=== PATIENT | female | born 1950 | race Caucasian/White ===

== ENCOUNTER → 2024-01-11 | Outpatient (CLI) | payer MEDICARE ==
[~2024-01-11] MED LIST: CARV12.5; CEFD1CAP9; ELIQ5TAB; FLAS1KIT2; FOLI1TAB11 PO; FURO20TA2; LIDOCAINE 1% MDV 20ML VIAL As Ordered ONE; METF-838; MIDAZOLAM INJ 2MG/2ML VIAL As Ordered ONE; NS 1,000 ML IV SCH; OMEP-173; ONDA-284; PRED10TA2; ROSU5TAB40; SPIR-10; TRAM50TA2 PO; VALS40TA9; fentaNYL 100 MCG/2 ML INJECTION As Ordered ONE
[2024-01-11 12:00] VITALS: TEMP 98.1
[2024-01-11 14:00] VITALS: BP 122/74; O2SAT 99
[2024-01-11] MEDS: traMADol 50 MG TAB PO ONE (14:44)
== END ==
LOC: M IRPRO 11:50
PROVIDERS: ATTEND Internal Medicine Hematology & Oncology
DX: C22.9 Malignant neoplasm of liver, not specified as primary or secondary (principal)
CPT/HCPCS: 47000; 76942; 88305; 99152; J2250; J3010

== ENCOUNTER 2024-01-17 18:05 | Inpatient (IN) | payer MEDICARE ==
[~2024-01-17] VITALS: Ht 152.4 cm; Wt 71.2 kg
[2024-01-17] VITALS (17 sets, daily range): BP systolic 87–118; BP diastolic 53–81; TEMP 97.9–98.3; O2SAT 82–99
[~2024-01-17 18:05] MED LIST changes: +AMOX875T2 PO; -CARV12.5; +CARV12.5 PO; -FURO20TA2; +FURO20TA2 PO; -LIDOCAINE 1% MDV 20ML VIAL As Ordered ONE; -METF-838; +METF-838 PO; -MIDAZOLAM INJ 2MG/2ML VIAL As Ordered ONE; -NS 1,000 ML IV SCH; -OMEP-173; +OMEP-173 PO; -ONDA-284; +ONDA-284 PO; -ROSU5TAB40; +ROSU5TAB40 PO; -SPIR-10; +SPIR-10 PO; -VALS40TA9; +VALS40TA9 PO; -fentaNYL 100 MCG/2 ML INJECTION As Ordered ONE
[2024-01-17] MEDS ORDERED: GLUCAGON INJ 1MG VIAL SC PRN (20:30)
[2024-01-17] MEDS ORDERED: GLUCOSE 4 GM CHEW PO PRN (20:30)
[2024-01-17] MEDS ORDERED: DEXTROSE 50% 50ML SYRINGE IV PRN (20:30)
[2024-01-17 20:40] LABS: BASO # 0.3 10^3/uL (0.0-0.2); BASO % 1.1 % (0.0-1.0); EOS # 0.1 10^3/uL (0.0-0.5); EOS % 0.5 % (0.0-3.0); HEMATOCRIT 37.6 % (36.0-47.0); HEMOGLOBIN 11.4 g/dl (12.0-15.5); LYMPH # 1.9 10^3/uL (1.5-5.0); LYMPH % 6.3 % (24.0-44.0); MEAN CORPUSCULAR HGB CONC 30.3 g/dl (32.0-36.5); MEAN CORPUSCULAR VOLUME 112.2 fl (80.0-96.0); MONO # 2.1 10^3/uL (0.0-0.8); MONO % 6.8 % (2.0-8.0); NEUTROPHILS # 25.2 10^3/uL (1.5-8.5); NEUTROPHILS % 82.8 % (36.0-66.0); PLATELET COUNT, AUTOMATED 183 10^3/uL (150-450); RED BLOOD COUNT 3.35 10^6/uL (4.00-5.40)
[2024-01-17] MEDS ORDERED: APIXABAN 2.5 MG TAB (ELIQUIS) PO SCH (21:00)
[2024-01-17] MEDS ORDERED: FUROSEMIDE injection 250 MG in D5W 225 ML IV SCH (21:00)
[2024-01-17 21:02] LABS: ALBUMIN 2.3 G/DL (3.2-5.2); ALKALINE PHOSPHATASE 125 U/L (46-116); ALT/SGPT 12 U/L (7.0-40); AST/SGOT 22 U/L (<34); BILIRUBIN,TOTAL 1.1 MG/DL (0.3-1.2); BLOOD UREA NITROGEN 27 MG/DL (9-23); CALCIUM LEVEL 8.7 MG/DL (8.3-10.6); CARBON DIOXIDE LEVEL 29 MMOL/L (20-31); CHLORIDE LEVEL 104 MMOL/L (98-107); CREATININE FOR GFR 0.69 MG/DL (0.55-1.30); GLOMERULAR FILTRATION RATE > 60.0 (>39); GLUCOSE, FASTING 242 MG/DL (74-106); HEMOGLOBIN A1c 8.9 % (4.0-6.0); POTASSIUM SERUM 4.5 MMOL/L (3.5-5.1); SODIUM LEVEL 135 MMOL/L (136-145); TOTAL PROTEIN 6.4 G/DL (5.7-8.2)
[2024-01-17 21:03] LABS: WHITE BLOOD COUNT 30.4 10^3/uL (4.0-10.0)
[2024-01-17 21:10] LABS: INR 1.26; PARTIAL THROMBOPLASTIN TIME 29.7 SECONDS (24.8-34.2); PROTHROMBIN TIME 15.4 SECONDS (12.5-14.5)
[2024-01-17] MEDS: PIPERACILLIN/TAZOBACTAM SOD 3.375 GM in D5W MINI-BAG PLUS 50 ML IV SCH (22:43)
[2024-01-17] MEDS: FUROSEMIDE injection 250 MG in D5W 225 ML IV SCH (22:43)
[2024-01-17] MEDS: AMIODARONE HCL 150 MG in IV 1 EA IV ONE (22:43)
[2024-01-17] MEDS: AMIODARONE HCL 360 MG in IV 1 EA IV SCH (22:53)
[2024-01-17] MEDS: INSULIN LISPRO (NovoLOG) PER UNIT SC SCH (22:53)
[2024-01-17 22:55] LABS: MAGNESIUM LEVEL 1.6 MG/DL (1.8-2.4)
[2024-01-17 23:09] LABS: PROCALCITONIN 0.15 ng/ml
[2024-01-18] VITALS (61 sets, daily range): BP systolic 71–145; BP diastolic 44–86; TEMP 96–98.1; O2SAT 56–99
[2024-01-18] MEDS: MAG SULF 1GM/100ML (MAG RUN) 1 GM in IV 1 EA IV SCH (00:12)
[2024-01-18] MEDS: traMADol 50 MG TAB PO PRN (00:12)
[2024-01-18] MEDS: LEVEMIR (INSULIN DETEMIR) 1 UNITS/0.01ML SC SCH (01:32)
[2024-01-18] MEDS ORDERED: INSULIN LISPRO (NovoLOG) PER UNIT SC SCH ×3 (02:00→21:00)
[2024-01-18] MEDS: NOREPINEPHRINE 4MG IN D5 250ML 4 MG in IV 1 EA IV SCH (02:07)
[2024-01-18] MEDS ORDERED: ELIQ2.5T PO (02:43)
[2024-01-18] MEDS ORDERED: FOLI1TAB11 PO (02:56)
[2024-01-18] MEDS ORDERED: TRAM50TA2 PO (03:06)
[2024-01-18] MEDS ORDERED: ALEN70TA82 PO (03:11)
[2024-01-18] MEDS ORDERED: ALPH600C PO (03:16)
[2024-01-18] MEDS ORDERED: VENTAER INH (03:16)
[2024-01-18] MEDS ORDERED: HOME MED LIST COMPLETE! XX SCH (03:20)
[2024-01-18] MEDS: INSULIN LISPRO (NovoLOG) PER UNIT SC SCH (04:01)
[2024-01-18] MEDS: AMIODARONE HCL 360 MG in IV 1 EA IV SCH (04:52)
[2024-01-18 05:27] LABS: HEMATOCRIT 35.1 % (36.0-47.0); HEMOGLOBIN 10.9 g/dl (12.0-15.5); MEAN CORPUSCULAR HGB CONC 31.1 g/dl (32.0-36.5); MEAN CORPUSCULAR VOLUME 109.3 fl (80.0-96.0); PLATELET COUNT, AUTOMATED 234 10^3/uL (150-450); RED BLOOD COUNT 3.21 10^6/uL (4.00-5.40)
[2024-01-18 05:28] LABS: WHITE BLOOD COUNT 38.8 10^3/uL (4.0-10.0)
[2024-01-18 05:53] LABS: ALBUMIN 2.2 G/DL (3.2-5.2); ALKALINE PHOSPHATASE 119 U/L (46-116); ALT/SGPT 10 U/L (7.0-40); AST/SGOT 24 U/L (<34); BILIRUBIN,TOTAL 1.2 MG/DL (0.3-1.2); BLOOD UREA NITROGEN 28 MG/DL (9-23); CALCIUM LEVEL 8.2 MG/DL (8.3-10.6); CARBON DIOXIDE LEVEL 25 MMOL/L (20-31); CHLORIDE LEVEL 103 MMOL/L (98-107); CREATININE FOR GFR 0.78 MG/DL (0.55-1.30); GLOMERULAR FILTRATION RATE > 60.0 (>39); GLUCOSE, FASTING 209 MG/DL (74-106); POTASSIUM SERUM 3.8 MMOL/L (3.5-5.1); SODIUM LEVEL 134 MMOL/L (136-145); TOTAL PROTEIN 6.1 G/DL (5.7-8.2)
[2024-01-18] MEDS ORDERED: FUROSEMIDE injection 250 MG in D5W 225 ML IV SCH ×3 (06:00→11:05)
[2024-01-18] MEDS: FUROSEMIDE injection 250 MG in D5W 225 ML IV SCH (06:05)
[2024-01-18] MEDS: PANTOPRAZOLE 40MG TAB (PROTONIX) PO SCH (09:53)
[2024-01-18] MEDS: ENOXAPARIN 80MG/0.8ML SYRINGE (J1650 PER 10MG) SC SCH (09:54)
[2024-01-18] MEDS: DOBUTamine HCL 500,000 MCG in IV 1 EA IV SCH (11:40)
[2024-01-18] MEDS ORDERED: DEXTROSE 50% 50ML SYRINGE IV PRN (16:15)
[2024-01-18] MEDS ORDERED: GLUCAGON INJ 1MG VIAL SC PRN (16:15)
[2024-01-18] MEDS ORDERED: GLUCOSE 4 GM CHEW PO PRN (16:15)
[2024-01-18] MEDS: PIPERACILLIN/TAZOBACTAM SOD 4.5 GM in D5W MINI-BAG PLUS 50 ML IV SCH (16:45)
[2024-01-18] MEDS: DIGOXIN INJ 0.5 MG/2 ML AMP IV SCH (16:46)
== END 2024-01-18 18:54 | disposition short-term general hospital (02) | DRG 871 ==
LOC: M ICU 19:17
PROVIDERS: ADMIT Internal Medicine Pulmonary Disease; ATTEND Internal Medicine Pulmonary Disease
PROC: 04HK33Z Insertion of Infusion Device into Right Femoral Artery, Percutaneous Approach (ICD-10-PCS; principal; 2024-01-18)
DX: A41.9 Sepsis, unspecified organism (principal); R57.0 Cardiogenic shock; R65.21 Severe sepsis with septic shock; I33.0 Acute and subacute infective endocarditis; C25.9 Malignant neoplasm of pancreas, unspecified; C79.51 Secondary malignant neoplasm of bone; C78.7 Secondary malignant neoplasm of liver and intrahepatic bile duct; J96.11 Chronic respiratory failure with hypoxia; E87.20 Acidosis, unspecified; I50.20 Unspecified systolic (congestive) heart failure; I48.91 Unspecified atrial fibrillation; E11.9 Type 2 diabetes mellitus without complications; M06.9 Rheumatoid arthritis, unspecified; J44.9 Chronic obstructive pulmonary disease, unspecified; D69.6 Thrombocytopenia, unspecified; E78.5 Hyperlipidemia, unspecified; M81.0 Age-related osteoporosis without current pathological fracture; Z99.81 Dependence on supplemental oxygen; Z95.810 Presence of automatic (implantable) cardiac defibrillator; D75.1 Secondary polycythemia; Z79.01 Long term (current) use of anticoagulants; Z88.8 Allergy status to other drugs, medicaments and biological substances; Z79.899 Other long term (current) drug therapy; Z87.891 Personal history of nicotine dependence

== ENCOUNTER → 2024-02-23 | Outpatient (CLI) | payer MEDICARE ==
[~2024-02-23] VITALS: Ht 152.4 cm; Wt 63.5 kg
[~2024-02-23] MED LIST changes: +ALEN70TA82 PO; +ALPH600C PO; +BASA100I; +ELIQ2.5T PO; +LEVO1TAB38 PO; +LIDOCAINE 1% MDV 20ML VIAL As Ordered ONE; +MIDAZOLAM INJ 2MG/2ML VIAL As Ordered ONE; +MIDO2.5T PO; +PANT40TA29 PO; +SPIR-10; +VENTAER INH; +ceFAZolin 2 GM/D5W 50 ML IV BAG As Ordered ONE; +fentaNYL 100 MCG/2 ML INJECTION As Ordered ONE
[2024-02-23 10:21] VITALS: TEMP 99.1
[2024-02-23] MEDS: NS 1,000 ML IV SCH (11:33)
[2024-02-23] MEDS: ceFAZolin SOD 2 GM in IV 1 EA IV ONE (11:33)
[2024-02-23 13:34] VITALS: BP 109/71; O2SAT 97
== END ==
LOC: M IRPRO 10:11
PROVIDERS: ATTEND Internal Medicine Hematology & Oncology
DX: D45 Polycythemia vera (principal)
CPT/HCPCS: 36561; 99152; 99153; J0690; J1642; J2250; J3010

== ENCOUNTER 2024-03-02 13:17 | Inpatient (IN) | payer MEDICARE ==
[2024-03-02] VITALS (21 sets, daily range): BP systolic 82–130; BP diastolic 49–68; TEMP 97.1–97.4; O2SAT 98–100
[~2024-03-02] VITALS: Ht 154.9 cm; Wt 70.1 kg
[~2024-03-02 13:17] MED LIST changes: -BASA100I; +BASA100I INJ; -LIDOCAINE 1% MDV 20ML VIAL As Ordered ONE; +METO37.5 PO; -MIDAZOLAM INJ 2MG/2ML VIAL As Ordered ONE; +PERCOCET PO; +PROC10TA5 PO; -SPIR-10; -ceFAZolin 2 GM/D5W 50 ML IV BAG As Ordered ONE; -fentaNYL 100 MCG/2 ML INJECTION As Ordered ONE
[2024-03-02] MEDS ORDERED: SODIUM CHLORIDE 0.9% INJ 10 ML SYR IV PRN (13:30)
[2024-03-02] MEDS ORDERED: NS 1,000 ML IV ONE (13:35)
[2024-03-02] MEDS: NS 500 ML IV ONE (13:45)
[2024-03-02 14:04] LABS: BASO # 0.5 10^3/uL (0.0-0.2); BASO % 0.9 % (0.0-1.0); EOS # 0.2 10^3/uL (0.0-0.5); EOS % 0.4 % (0.0-3.0); HEMOGLOBIN 10.3 g/dl (12.0-15.5); LYMPH # 1.6 10^3/uL (1.5-5.0); LYMPH % 2.7 % (24.0-44.0); MEAN CORPUSCULAR HEMOGLOBIN 30.2 pg (27.0-33.0); MEAN CORPUSCULAR HGB CONC 28.6 g/dl (32.0-36.5); MEAN CORPUSCULAR VOLUME 105.6 fl (80.0-96.0); MONO % 3.3 % (2.0-8.0); NEUTROPHILS # 53.7 10^3/uL (1.5-8.5); PLATELET COUNT, AUTOMATED 220 10^3/uL (150-450); RED BLOOD COUNT 3.41 10^6/uL (4.00-5.40)
[2024-03-02 14:08] LABS: ABG BASE EXCESS 0.6 (-2.0-2.0); ABG HCO3 24.5 MMOL/L (22.0-26.0); ABG O2 SATURATION 89.9 % (95.0-99.0); ABG PARTIAL PRESSURE CO2 36.8 mmHg (35.0-45.0); ABG PARTIAL PRESSURE O2 59.8 mmHg (75.0-100.0); ABG STANDARD HCO3 24.8 MMOL/L. (22.0-26.0); ABG TOTAL CO2 25.6 MMOL/L (23.0-31.0); ABG pH (ARTERIAL) 7.441 UNITS (7.350-7.450)
[2024-03-02 14:10] LABS: WHITE BLOOD COUNT 60.2 10^3/uL (4.0-10.0)
[2024-03-02 14:23] LABS: CK-MB VALUE MASS < 1.0 NG/ML (<3.6); INR 3.39; PARTIAL THROMBOPLASTIN TIME 47.8 SECONDS (24.8-34.2)
[2024-03-02 14:25] LABS: CPK CREATINE PHOSPHOKINASE 38 U/L (34-145); MB/CK RELATIVE INDEX 2.63 (< OR =4)
[2024-03-02 14:26] LABS: THYROID STIMULATING HORMONE 26.399 uIU/ML (0.55-4.78)
[2024-03-02 14:28] LABS: FREE T4 0.87 NG/DL (0.89-1.76)
[2024-03-02] MEDS: PIPERACILLIN/TAZOBACTAM SOD 4.5 GM in DEXTROSE 5% (D5W) ADV/MINI-BAG 50 ML IV ONE (14:34)
[2024-03-02] MEDS: PANTOPRAZOLE 40MG VIAL IV ONE (14:34)
[2024-03-02 14:40] LABS: ALBUMIN 2.1 G/DL (3.2-5.2); ALKALINE PHOSPHATASE 180 U/L (46-116); ALT/SGPT 13 U/L (7.0-40); AST/SGOT 51 U/L (<34); BILIRUBIN,DIRECT 0.9 MG/DL (<0.4); BILIRUBIN,TOTAL 1.6 MG/DL (0.3-1.2); BLOOD UREA NITROGEN 37 MG/DL (9-23); CALCIUM LEVEL 8.2 MG/DL (8.3-10.6); CARBON DIOXIDE LEVEL 28 MMOL/L (20-31); CHLORIDE LEVEL 99 MMOL/L (98-107); CREATININE FOR GFR 1.27 MG/DL (0.55-1.30); GLOMERULAR FILTRATION RATE 44.2 (>39); GLUCOSE, FASTING 227 MG/DL (74-106); POTASSIUM SERUM 4.4 MMOL/L (3.5-5.1); SODIUM LEVEL 135 MMOL/L (136-145); TOTAL PROTEIN 6.3 G/DL (5.7-8.2)
[2024-03-02] MEDS ORDERED: AMIODARONE 150MG/3ML VIAL IVP STA (16:38)
[2024-03-02] MEDS: AMIODARONE HCL 150 MG in IV 1 EA IV ONE (17:13)
[2024-03-02] MEDS: AMIODARONE HCL 360 MG in IV 1 EA IV SCH ×2 (17:37→23:17)
[2024-03-02] MEDS ORDERED: FURO40TA2 PO (17:58)
[2024-03-02] MEDS ORDERED: METO50TA7 PO (17:58)
[2024-03-02] MEDS ORDERED: ELIQ5TAB PO (17:58)
[2024-03-02] MEDS ORDERED: HOME MED LIST COMPLETE! XX SCH (18:00)
[2024-03-02] MEDS: VASOPRESSIN IN 0.9 % NACL 20 UNIT in IV 1 EA IV SCH (18:58)
[2024-03-02] MEDS ORDERED: PILL CUTTER 1 EACH XX PRN (19:25)
[2024-03-02] MEDS: DOCUSATE SODIUM 100MG CAPSULE PO SCH (20:20)
[2024-03-02] MEDS: PIPERACILLIN/TAZOBACTAM SOD 3.375 GM in DEXTROSE 5% (D5W) ADV/MINI-BAG 50 ML IV SCH (22:24)
[2024-03-02] MEDS: ROSUVASTATIN 10 MG TAB (CRESTOR) PO SCH (22:24)
[2024-03-03] VITALS (97 sets, daily range): BP systolic 74–118; BP diastolic 46–70; TEMP 97.1–98; O2SAT 90–100
[2024-03-03] MEDS: PERCOCET 5MG/325MG TAB PO PRN (02:35)
[2024-03-03 04:56] LABS: HEMATOCRIT 33.2 % (36.0-47.0); HEMOGLOBIN 9.7 g/dl (12.0-15.5); MEAN CORPUSCULAR HGB CONC 29.2 g/dl (32.0-36.5); MEAN CORPUSCULAR VOLUME 106.1 fl (80.0-96.0); PLATELET COUNT, AUTOMATED 200 10^3/uL (150-450); RED BLOOD COUNT 3.13 10^6/uL (4.00-5.40)
[2024-03-03 05:34] LABS: MONOCYTES 6 % (0-5); MYELOCYTES 1 % (0-0); NEUTROPHILS 93 % (28-66)
[2024-03-03 05:35] LABS: PLATELET ESTIMATE NORMAL (NORMAL); POIKILOCYTOSIS 1+
[2024-03-03 05:36] LABS: ANISOCYTOSIS 2+
[2024-03-03 05:52] LABS: ALBUMIN 2.1 G/DL (3.2-5.2); BILIRUBIN,TOTAL 1.7 MG/DL (0.3-1.2); CALCIUM LEVEL 7.9 MG/DL (8.3-10.6); CREATININE FOR GFR 1.68 MG/DL (0.55-1.30); MAGNESIUM LEVEL 1.5 MG/DL (1.8-2.4); PHOSPHORUS LEVEL 5.9 MG/DL (2.4-5.1); POTASSIUM SERUM 4.6 MMOL/L (3.5-5.1); TOTAL PROTEIN 6.1 G/DL (5.7-8.2)
[2024-03-03] MEDS: MAG SULF 1GM/100ML (MAG RUN) 1 GM in IV 1 EA IV SCH (06:13)
[2024-03-03] MEDS ORDERED: GLUCAGON INJ 1MG VIAL SC PRN (07:30)
[2024-03-03] MEDS ORDERED: DEXTROSE 50% 50ML SYRINGE IV PRN (07:30)
[2024-03-03] MEDS ORDERED: GLUCOSE 4 GM CHEW PO PRN (07:30)
[2024-03-03] MEDS: INSULIN LISPRO (NovoLOG) PER UNIT SC SCH ×2 (08:19→20:26)
[2024-03-03] MEDS: FUROSEMIDE 100MG/10ML VIAL IV ONE (08:19)
[2024-03-03] MEDS: DOBUTamine HCL 500,000 MCG in IV 1 EA IV SCH (08:23)
[2024-03-03] MEDS: LEVOTHYROXINE 100MCG (0.1MG) 5ML SDV PF (SOLUTION FORM) IV SCH (08:26)
[2024-03-03] MEDS: PANTOPRAZOLE 40MG VIAL IV SCH (08:26)
[2024-03-03] MEDS: FOLIC ACID 1MG TAB PO SCH (08:29)
[2024-03-03] MEDS: HYDROCORTISONE 100MG/2ML VIAL IV ONE (08:30)
[2024-03-03] MEDS: VASOPRESSIN IN 0.9 % NACL 20 UNIT in IV 1 EA IV SCH (08:52)
[2024-03-03] MEDS: MAG SULF 1GM/100ML (MAG RUN) 1 GM in IV 1 EA IV ONE (12:28)
[2024-03-03] MEDS ORDERED: PERCOCET PO (14:11)
[2024-03-03] MEDS: HEPARIN SOD (PORCINE) 5000UNITS/ML 1ML VIAL/SYRINGE SQ SCH (14:26)
[2024-03-03] MEDS: metOLazone 5 MG TAB PO ONE (16:25)
[2024-03-03] MEDS: FUROSEMIDE injection 100 MG, VIAL 2 BAG 13MM ADAPTER 1 EACH in D5W 100 ML IV SCH (17:14)
[2024-03-03] MEDS: FUROSEMIDE 20MG/2ML VIAL IV ONE (18:24)
[2024-03-03] MEDS: LEVEMIR (INSULIN DETEMIR) 1 UNITS/0.01ML SC SCH (21:29)
[2024-03-03] MEDS: AMIODARONE HCL 360 MG in IV 1 EA IV SCH (22:57)
[2024-03-04] VITALS (51 sets, daily range): BP systolic 79–122; BP diastolic 51–76; TEMP 97.3–98.2; O2SAT 90–98
[2024-03-04 04:13] LABS: HEMATOCRIT 28.3 % (36.0-47.0); HEMOGLOBIN 8.4 g/dl (12.0-15.5); MEAN CORPUSCULAR HEMOGLOBIN 31.2 pg (27.0-33.0); MEAN CORPUSCULAR HGB CONC 29.7 g/dl (32.0-36.5); MEAN CORPUSCULAR VOLUME 105.2 fl (80.0-96.0); PLATELET COUNT, AUTOMATED 123 10^3/uL (150-450); RED BLOOD COUNT 2.69 10^6/uL (4.00-5.40)
[2024-03-04 04:46] LABS: ALBUMIN 1.9 G/DL (3.2-5.2); CALCIUM LEVEL 7.5 MG/DL (8.3-10.6); CREATININE FOR GFR 2.34 MG/DL (0.55-1.30); GLOMERULAR FILTRATION RATE 21.8 (>39); POTASSIUM SERUM 3.9 MMOL/L (3.5-5.1); TOTAL PROTEIN 5.7 G/DL (5.7-8.2)
[2024-03-04 05:01] LABS: MONOCYTES 8 % (0-5); NEUTROPHILS 91 % (28-66)
[2024-03-04 05:02] LABS: PLATELET ESTIMATE DECREASED (NORMAL)
[2024-03-04 05:03] LABS: HYPOCHROMASIA 1+; OVALOCYTES 1+; POIKILOCYTOSIS 1+; POLYCHROMASIA 1+
[2024-03-04 05:06] LABS: ANISOCYTOSIS 1+
[2024-03-04] MEDS: FUROSEMIDE injection 100 MG, VIAL 2 BAG 13MM ADAPTER 1 EACH in D5W 100 ML IV SCH (08:45)
[2024-03-04] MEDS: FUROSEMIDE 40MG/4ML VIAL IV ONE (08:47)
[2024-03-04] MEDS: LEVEMIR (INSULIN DETEMIR) 1 UNITS/0.01ML SC SCH (08:48)
[2024-03-04] MEDS: PIPERACILLIN/TAZOBACTAM SOD 2.25 GM in DEXTROSE 5% (D5W) ADV/MINI-BAG 50 ML IV SCH (14:16)
[2024-03-04 19:34] LABS: BILIRUBIN,TOTAL 0.9 MG/DL (0.3-1.2); CALCIUM LEVEL 7.7 MG/DL (8.3-10.6); CREATININE FOR GFR 2.4 MG/DL (0.55-1.30); GLOMERULAR FILTRATION RATE 21.2 (>39); MAGNESIUM LEVEL 2.1 MG/DL (1.8-2.4); POTASSIUM SERUM 3.2 MMOL/L (3.5-5.1)
[2024-03-04] MEDS: KCL 20MEQ IN 100ML SWI (KRUN) 20 MEQ in IV 1 EA IV ONE (20:37)
[2024-03-05] VITALS (51 sets, daily range): BP systolic 76–135; BP diastolic 52–91; TEMP 96.7–98.1; O2SAT 94–99
[2024-03-05 04:34] LABS: BASO # 0.3 10^3/uL (0.0-0.2); BASO % 0.7 % (0.0-1.0); EOS # 0.4 10^3/uL (0.0-0.5); HEMATOCRIT 28.8 % (36.0-47.0); HEMOGLOBIN 8.4 g/dl (12.0-15.5); LYMPH # 0.9 10^3/uL (1.5-5.0); LYMPH % 2.1 % (24.0-44.0); MEAN CORPUSCULAR HEMOGLOBIN 30.7 pg (27.0-33.0); MEAN CORPUSCULAR HGB CONC 29.2 g/dl (32.0-36.5); MEAN CORPUSCULAR VOLUME 105.1 fl (80.0-96.0); MONO % 4.7 % (2.0-8.0); NEUTROPHILS # 37.7 10^3/uL (1.5-8.5); NEUTROPHILS % 88.1 % (36.0-66.0); PLATELET COUNT, AUTOMATED 124 10^3/uL (150-450); RED BLOOD COUNT 2.74 10^6/uL (4.00-5.40)
[2024-03-05 04:41] LABS: WHITE BLOOD COUNT 42.7 10^3/uL (4.0-10.0)
[2024-03-05 05:05] LABS: BILIRUBIN,TOTAL 0.9 MG/DL (0.3-1.2); CALCIUM LEVEL 7.8 MG/DL (8.3-10.6); CREATININE FOR GFR 2.36 MG/DL (0.55-1.30); GLOMERULAR FILTRATION RATE 21.6 (>39); POTASSIUM SERUM 3.4 MMOL/L (3.5-5.1); TOTAL PROTEIN 5.9 G/DL (5.7-8.2)
[2024-03-05] MEDS: LEVEMIR (INSULIN DETEMIR) 1 UNITS/0.01ML SC SCH (08:41)
[2024-03-05] MEDS: MAG SULF 1GM/100ML (MAG RUN) 1 GM in IV 1 EA IV ONE (09:37)
[2024-03-05] MEDS: KCL 20MEQ IN 100ML SWI (KRUN) 20 MEQ in IV 1 EA IV SCH (11:01)
[2024-03-05] MEDS: AMIODARONE HCL 150 MG in IV 1 EA IV ONE ×2 (11:06→14:49)
[2024-03-05] MEDS: VASOPRESSIN IN 0.9 % NACL 20 UNIT in IV 1 EA IV SCH (12:18)
[2024-03-05 17:53] LABS: CREATININE FOR GFR 2.31 MG/DL (0.55-1.30); GLOMERULAR FILTRATION RATE 22.1 (>39); POTASSIUM SERUM 4.5 MMOL/L (3.5-5.1)
[2024-03-05] MEDS: METOPROLOL TART 25 MG TABLET PO ONE (17:54)
[2024-03-05] MEDS: PHENYLEPHRINE HCL INJ 50 MG in D5W 495 ML IV SCH (19:30)
[2024-03-05] MEDS: METOPROLOL TART 25 MG TABLET PO SCH (20:35)
[2024-03-06] VITALS (89 sets, daily range): BP systolic 77–119; BP diastolic 50–80; TEMP 96.9–98.2; O2SAT 93–98
[2024-03-06 04:45] LABS: BASO # 0.4 10^3/uL (0.0-0.2); BASO % 0.9 % (0.0-1.0); EOS # 0.5 10^3/uL (0.0-0.5); EOS % 1.2 % (0.0-3.0); HEMATOCRIT 31.3 % (36.0-47.0); LYMPH % 2.2 % (24.0-44.0); MEAN CORPUSCULAR HEMOGLOBIN 30.7 pg (27.0-33.0); MEAN CORPUSCULAR HGB CONC 28.8 g/dl (32.0-36.5); MEAN CORPUSCULAR VOLUME 106.8 fl (80.0-96.0); MONO # 2.2 10^3/uL (0.0-0.8); NEUTROPHILS # 37.1 10^3/uL (1.5-8.5); NEUTROPHILS % 85.8 % (36.0-66.0); PLATELET COUNT, AUTOMATED 151 10^3/uL (150-450); RED BLOOD COUNT 2.93 10^6/uL (4.00-5.40)
[2024-03-06 04:50] LABS: WHITE BLOOD COUNT 43.2 10^3/uL (4.0-10.0)
[2024-03-06 05:08] LABS: PROCALCITONIN 0.59 ng/ml
[2024-03-06 05:10] LABS: BILIRUBIN,TOTAL 0.9 MG/DL (0.3-1.2); CALCIUM LEVEL 8.1 MG/DL (8.3-10.6); CREATININE FOR GFR 2.48 MG/DL (0.55-1.30); GLOMERULAR FILTRATION RATE 20.4 (>39); POTASSIUM SERUM 4.5 MMOL/L (3.5-5.1); TOTAL PROTEIN 6.2 G/DL (5.7-8.2)
[2024-03-06] MEDS: MIDODRINE 2.5 MG TAB PO SCH (07:45)
[2024-03-06] MEDS: FUROSEMIDE 40MG/4ML VIAL IV ONE (20:25)
[2024-03-07] VITALS (94 sets, daily range): BP systolic 82–117; BP diastolic 50–76; TEMP 96.7–98.3; O2SAT 94–98
[2024-03-07 04:36] LABS: BASO # 0.3 10^3/uL (0.0-0.2); BASO % 0.7 % (0.0-1.0); EOS # 0.5 10^3/uL (0.0-0.5); EOS % 1.1 % (0.0-3.0); HEMATOCRIT 29.4 % (36.0-47.0); HEMOGLOBIN 8.6 g/dl (12.0-15.5); LYMPH % 2.1 % (24.0-44.0); MEAN CORPUSCULAR HEMOGLOBIN 30.7 pg (27.0-33.0); MEAN CORPUSCULAR HGB CONC 29.3 g/dl (32.0-36.5); MONO # 2.3 10^3/uL (0.0-0.8); MONO % 5.2 % (2.0-8.0); NEUTROPHILS # 38.5 10^3/uL (1.5-8.5); NEUTROPHILS % 86.3 % (36.0-66.0); PLATELET COUNT, AUTOMATED 118 10^3/uL (150-450)
[2024-03-07 04:38] LABS: WHITE BLOOD COUNT 44.7 10^3/uL (4.0-10.0)
[2024-03-07 05:16] LABS: ALBUMIN 1.9 G/DL (3.2-5.2); BILIRUBIN,TOTAL 0.9 MG/DL (0.3-1.2); CALCIUM LEVEL 7.8 MG/DL (8.3-10.6); CREATININE FOR GFR 2.33 MG/DL (0.55-1.30); GLOMERULAR FILTRATION RATE 21.9 (>39); MAGNESIUM LEVEL 1.9 MG/DL (1.8-2.4); POTASSIUM SERUM 3.2 MMOL/L (3.5-5.1); TOTAL PROTEIN 5.9 G/DL (5.7-8.2)
[2024-03-07] MEDS ORDERED: MAG SULF 1GM/100ML (MAG RUN) 1 GM in IV 1 EA IV SCH (05:50)
[2024-03-07] MEDS: LEVOTHYROXINE 50MCG TABLET (0.05MG) PO SCH (06:16)
[2024-03-07] MEDS: KCL 20MEQ IN 100ML SWI (KRUN) 20 MEQ in IV 1 EA IV SCH ×2 (06:16→18:20)
[2024-03-07 16:50] LABS: ALBUMIN 1.9 G/DL (3.2-5.2); BILIRUBIN,TOTAL 0.8 MG/DL (0.3-1.2); CALCIUM LEVEL 8.2 MG/DL (8.3-10.6); CREATININE FOR GFR 2.11 MG/DL (0.55-1.30); GLOMERULAR FILTRATION RATE 24.6 (>39); MAGNESIUM LEVEL 1.8 MG/DL (1.8-2.4); POTASSIUM SERUM 3.3 MMOL/L (3.5-5.1); TOTAL PROTEIN 6.1 G/DL (5.7-8.2)
[2024-03-07] MEDS ORDERED: KCL 20MEQ IN 100ML SWI (KRUN) 20 MEQ in IV 1 EA IV STA (18:03)
[2024-03-07] MEDS ORDERED: MAG SULF 1GM/100ML (MAG RUN) 1 GM in IV 1 EA IV STA (18:03)
[2024-03-07] MEDS: MAG SULF 1GM/100ML (MAG RUN) 1 GM in IV 1 EA IV SCH (18:33)
[2024-03-08] VITALS (51 sets, daily range): BP systolic 79–121; BP diastolic 51–74; TEMP 96.9–98.1; O2SAT 95–99
[2024-03-08 04:59] LABS: BASO # 0.3 10^3/uL (0.0-0.2); BASO % 0.7 % (0.0-1.0); EOS # 0.4 10^3/uL (0.0-0.5); HEMATOCRIT 29.5 % (36.0-47.0); HEMOGLOBIN 8.6 g/dl (12.0-15.5); LYMPH % 2.3 % (24.0-44.0); MEAN CORPUSCULAR HEMOGLOBIN 30.5 pg (27.0-33.0); MEAN CORPUSCULAR HGB CONC 29.2 g/dl (32.0-36.5); MEAN CORPUSCULAR VOLUME 104.6 fl (80.0-96.0); MONO # 2.3 10^3/uL (0.0-0.8); MONO % 5.1 % (2.0-8.0); NEUTROPHILS # 38.7 10^3/uL (1.5-8.5); NEUTROPHILS % 86.9 % (36.0-66.0); PLATELET COUNT, AUTOMATED 134 10^3/uL (150-450); RED BLOOD COUNT 2.82 10^6/uL (4.00-5.40)
[2024-03-08 05:02] LABS: WHITE BLOOD COUNT 44.5 10^3/uL (4.0-10.0)
[2024-03-08 05:33] LABS: ALBUMIN 1.9 G/DL (3.2-5.2); BILIRUBIN,TOTAL 0.8 MG/DL (0.3-1.2); CREATININE FOR GFR 2.09 MG/DL (0.55-1.30); GLOMERULAR FILTRATION RATE 24.9 (>39); MAGNESIUM LEVEL 2.3 MG/DL (1.8-2.4); POTASSIUM SERUM 4.5 MMOL/L (3.5-5.1)
[2024-03-08] MEDS: ACETAMINOPHEN *IV* 1,000 MG in IV 1 EA IV ONE (13:30)
[2024-03-08] MEDS: FUROSEMIDE 100MG/10ML VIAL IV ONE ×2 (15:36→20:42)
[2024-03-08] MEDS: MIDODRINE 5 MG TAB PO SCH (15:36)
[2024-03-08] MEDS: ACETAMINOPHEN *IV* 1,000 MG in IV 1 EA IV SCH (20:42)
[2024-03-09] VITALS (19 sets, daily range): BP systolic 87–120; BP diastolic 50–67; TEMP 97.5–98.4; O2SAT 92–97
[2024-03-09 04:36] LABS: BASO # 0.3 10^3/uL (0.0-0.2); BASO % 0.8 % (0.0-1.0); EOS # 0.6 10^3/uL (0.0-0.5); EOS % 1.4 % (0.0-3.0); HEMOGLOBIN 8.8 g/dl (12.0-15.5); LYMPH # 1.2 10^3/uL (1.5-5.0); LYMPH % 2.9 % (24.0-44.0); MEAN CORPUSCULAR HGB CONC 28.4 g/dl (32.0-36.5); MEAN CORPUSCULAR VOLUME 105.8 fl (80.0-96.0); MONO # 1.9 10^3/uL (0.0-0.8); MONO % 4.8 % (2.0-8.0); NEUTROPHILS % 86.2 % (36.0-66.0); PLATELET COUNT, AUTOMATED 129 10^3/uL (150-450); RED BLOOD COUNT 2.93 10^6/uL (4.00-5.40)
[2024-03-09 04:55] LABS: WHITE BLOOD COUNT 39.4 10^3/uL (4.0-10.0)
[2024-03-09 05:06] LABS: CREATININE FOR GFR 2.16 MG/DL (0.55-1.30); GLOMERULAR FILTRATION RATE 23.9 (>39); MAGNESIUM LEVEL 2.1 MG/DL (1.8-2.4); POTASSIUM SERUM 3.5 MMOL/L (3.5-5.1)
[2024-03-09] MEDS ORDERED: MIDODRINE 5 MG TAB PO SCH (09:00)
[2024-03-09] MEDS: PERCOCET 5MG/325MG TAB PO PRN (09:09)
[2024-03-09] MEDS: ALBUTEROL SULFATE 2.5MG/0.5ML INH NEB SOLN NEB SCH (09:22)
[2024-03-09] MEDS: BUMETANIDE 1MG/4ML VIAL IV SCH (10:08)
[2024-03-09] MEDS: BUMETANIDE 1 MG TAB PO SCH (21:53)
[2024-03-09] MEDS: MIDODRINE 5 MG TAB PO SCH (21:54)
[2024-03-10] VITALS: BP 101/54; TEMP 97.9; O2SAT 98
[2024-03-10 04:00] VITALS: BP 134/66; TEMP 98.1; O2SAT 98
[2024-03-10 08:00] VITALS: BP 106/59; TEMP 98.3; O2SAT 96
[2024-03-10 08:44] VITALS: BP 106/59
[2024-03-10] MEDS ORDERED: ONDANSETRON 4MG ORAL DISINTEGRATING TAB PO PRN (10:55)
[2024-03-10] MEDS ORDERED: SCOPOLAMINE 1MG TRANSDERMAL PATCH TOP PRN (10:55)
[2024-03-10] MEDS ORDERED: BISACODYL 10MG SUPP PR PRN (10:55)
[2024-03-10] MEDS ORDERED: HYOSCYAMINE SULFATE 0.125 MG SUBL TABLET PO PRN (10:55)
[2024-03-10] MEDS ORDERED: ACETAMINOPHEN 325 MG TAB PO PRN (10:55)
[2024-03-10] MEDS: MORPHINE 10MG/0.5ML ORAL CONCENTRATE SOLUTION U/D SL PRN (21:23)
[2024-03-11] MEDS: BUMETANIDE 1 MG TAB PO SCH (08:15)
[2024-03-11] MEDS: LORazepam 1 MG TAB PO PRN (23:11)
[2024-03-12] MEDS: ALBUTEROL SULFATE 2.5MG/0.5ML INH NEB SOLN NEB PRN (12:07)
[2024-03-14] MEDS: MORPHINE 10MG/0.5ML ORAL CONCENTRATE SOLUTION U/D SL SCH (13:50)
[2024-03-14] MEDS ORDERED: HYOS125TA PO (14:10)
[2024-03-14] MEDS ORDERED: MORP1SOL5 PO (14:10)
[2024-03-14] MEDS ORDERED: ATIV1TAB10 PO (14:10)
== END 2024-03-15 11:25 | disposition hospice, home (50) | DRG 291 ==
LOC: M ED 13:17 → M ED INP 16:35 → EEVIPCON 16:35 → M ICU 18:42 → M MS5PR 03-12 22:49
PROVIDERS: ADMIT Internal Medicine Pulmonary Disease; ATTEND Internal Medicine
PROC: B246ZZZ Ultrasonography of Right and Left Heart (ICD-10-PCS; principal; 2024-03-02)
PROC: 02HV33Z Insertion of Infusion Device into Superior Vena Cava, Percutaneous Approach (ICD-10-PCS; 2024-03-02)
DX: I11.0 Hypertensive heart disease with heart failure (principal); R57.0 Cardiogenic shock; I50.23 Acute on chronic systolic (congestive) heart failure; C25.9 Malignant neoplasm of pancreas, unspecified; N39.0 Urinary tract infection, site not specified; E87.1 Hypo-osmolality and hyponatremia; K92.2 Gastrointestinal hemorrhage, unspecified; N17.9 Acute kidney failure, unspecified; I31.39 Other pericardial effusion (noninflammatory); C78.7 Secondary malignant neoplasm of liver and intrahepatic bile duct; E87.20 Acidosis, unspecified; I48.91 Unspecified atrial fibrillation; K21.9 Gastro-esophageal reflux disease without esophagitis; E87.6 Hypokalemia; J44.9 Chronic obstructive pulmonary disease, unspecified; E11.9 Type 2 diabetes mellitus without complications; M06.9 Rheumatoid arthritis, unspecified; M85.88 Other specified disorders of bone density and structure, other site; E78.5 Hyperlipidemia, unspecified; D69.6 Thrombocytopenia, unspecified; Z66 Do not resuscitate; E03.9 Hypothyroidism, unspecified; Z79.01 Long term (current) use of anticoagulants; Z79.84 Long term (current) use of oral hypoglycemic drugs; Z79.891 Long term (current) use of opiate analgesic; Z79.899 Other long term (current) drug therapy; Z87.891 Personal history of nicotine dependence; Z88.8 Allergy status to other drugs, medicaments and biological substances; Z99.81 Dependence on supplemental oxygen; Z90.49 Acquired absence of other specified parts of digestive tract; Z95.810 Presence of automatic (implantable) cardiac defibrillator; Z90.79 Acquired absence of other genital organ(s); I27.20 Pulmonary hypertension, unspecified